=== PATIENT | male | born 1975 | race Caucasian/White ===

== ENCOUNTER → 2019-10-26 | Outpatient (CLI) | payer OTHER ==
[2019-10-26 15:05] LABS: ABSOLUTE EOSINOPHILS 0.1 thou/uL (0.0-0.7); ABSOLUTE LYMPHOCYTES 2.2 thou/uL (0.8-5.3); ABSOLUTE MONOCYTES 0.6 thou/uL (0.0-1.2); ABSOLUTE NEUTROPHILS 3.4 thou/uL (1.6-8.1); BASOPHILS 0.7 %; EOSINOPHILS 1.6 %; HEMATOCRIT 44.9 % (42.0-52.0); HEMOGLOBIN 15.4 gm/dL (14.0-18.0); LYMPHOCYTES 35.3 %; MCH 29.2 pg (26.0-34.0); MCHC 34.3 g/dL (28.0-37.0); MCV 85.2 fL (80.0-100.0); MPV 9.2 fl. (7.2-11.1); NUCLEATED RBCS 0 /100WBC; PLATELET COUNT* 211 thou/uL (150-400); POLYS 53.4 %; RBC 5.27 mil/uL (4.50-6.00); RDW-CV 13.4 % (10.5-14.5); WBC 6.4 thou/uL (4.0-11.0)
[2019-10-26 15:18] LABS: CALCIUM 8.7 mg/dL (8.5-10.1); POTASSIUM 3.7 mmol/L (3.5-5.1); TOTAL BILIRUBIN 0.3 mg/dL (<0.1-1.0); TOTAL PROTEIN 7.5 g/dL (6.4-8.2)
== END ==
LOC: M.LAB 14:49
PROVIDERS: Internal Medicine
DX: F41.1 Generalized anxiety disorder (principal)

== ENCOUNTER → 2019-11-06 | Outpatient (CLI) | payer OTHER ==
--- NOTE | 2019-11-10 07:58 | SLEEP ---
[address] [address] SLEEP STUDY REPORT Name: MAIK ADHIKARI Room: [facility]#: [id number] Admission: 11/06/19 Attend Phys: Maria Ines Kong MD Discharge: Date of : 75 Report #: [id number] THIS REPORT FOR: //name// CC: Maria Ines Kong MD This study has been reviewed in its entirety by a board certified sleep specialist DATE OF SERVICE: 11/06/2019 SLEEP STUDY ATTENDING PHYSICIAN: Maria Ines Kong M.D. The patient is 44 years old who weighs 175 pounds with a BMI of 27.4. The patient's Altamont score was 13. The patient underwent diagnostic sleep study performed at [facility]. During the night study, the patient spent 449 minutes in bed and slept for 254 minutes with a sleep efficiency of 56%. Sleep latency was 31.9 minutes with a REM latency of 305 minutes. Sleep architecture showed increased stage 1 and stage 2 sleep, normal slow wave and reduced REM sleep, which was 7.3% of the total sleep time. During the night study, the patient had 1 central apnea, no mixed or obstructive apneas and 1 hypopnea. The patient's apnea-hypopnea index for the entire night was 0.5 per hour with a REM index of 6.5 per hour and a supine index of 3.4 per hour. EKG monitoring revealed an average heart rate of 62 beats per minute. No sustained arrhythmias observed. No clinically significant PLMs seen. Nocturnal oximetry study revealed an average oxygen saturation of 97% with a lowest of 89%. No clinically significant desaturations of less than 89% observed. Due to low AHI, the patient did not meet the split night criteria for CPAP initiation. IMPRESSION: 1. No clinically significant sleep-disordered breathing. The patient's apnea hypopnea index for the entire night was 0.5 per hour. 2. No clinically [place] [address] SLEEP STUDY REPORT Name: MAIK ADHIKARI Room: [facility]#: [id number] Admission: 11/06/19 Attend Phys: Maria Ines Kong MD Discharge: Date of : 75 Report #: [id number] 3. Reduced sleep efficiency resulting from sleep maintenance insomnia. 4. No clinically significant periodic limb movements. RECOMMENDATIONS: 1. The patient did not meet the split night criteria for CPAP initiation due to very low AHI. 2. The patient has moderate subjective hypersomnia and is clinically symptomatic with an Altamont score of 13. The patient's sleep efficiency was significantly reduced to 56%. If the patient has chronic insomnia, then it can contribute to the patient's daytime sleepiness. If patient's insomnia is not chronic, then the patient can be evaluated for other disorders such as narcolepsy or idiopathic hypersomnia and would require multiple sleep latency tests if these conditions are clinically suspected. 3. Avoid [employer] depressants. 4. Cautioned regarding driving until the patient's hypersomnia is resolved with the above recommendations. <ELECTRONICALLY SIGNED> By: Migue Rodriguez MD 11/10/19 [id number] 2020Aman Winston Rodriguez MD /nt
== END ==
LOC: M.SLEEPLAB 19:46
DX: G47.30 Sleep apnea, unspecified (principal)